=== PATIENT | female | born 1935 | race Caucasian/White ===

== ENCOUNTER 2018-02-28 09:06 | Outpatient (CLI) | payer MEDICARE, OTHER ==
--- NOTE | 2018-02-28 12:34 | MRI ---
MRI OF THE LEFT ANKLE: DATE: 02/28/18. PROVIDED CLINICAL HISTORY: Ankle pain. FINDINGS: There is high-grade partial/near-complete tearing of the flexor hallucis longus tendon at the level o f the tibiotalar joint. The posterior tibialis tendon demonstrates an irregular appearance distally near its navicular insertion suggesting partial tear. The Achilles, anterior extensor, and peroneal tendons appear intact. The medial and lateral ankle ligaments appear intact. There is a prominent subtalar joint space narrowing with periarticular cyst formation and the periart icular edema. There is replacement of the normal fat signal intensity within the sinus tarsi. Joint space narrowing is also seen involving the tibiotalar joint. There is a small tibiotalar joint effu edna. A small low-grade osteochondral lesion involving the medial talar dome. Courses of the regional major neurovascular structures appear unremarkable. Regional marrow and musc ular signal appear otherwise normal. Plantar aponeurosis appears normal. IMPRESSION: 1. High-grade partial thickness/near full-thickness tearing of the flexor hallucis longus tendon at the level of the tibiotalar joint. 2. Low-grade partial thickness distal posterior tibialis tendon tear. 3. Advanced posterior subtalar degenerative arthrosis. 4. Tibiotalar degenerative change with small low-grade osteochondral lesion involving the medial gale ar dome and small tibiotalar joint effusion. POS: George
== END 2018-02-28 09:07 | disposition home or self-care (01) ==
LOC: SCSMRI 09:06
PROVIDERS: ATTEND Podiatrist
DX: M25.572 Pain in left ankle and joints of left foot (principal); G89.29 Other chronic pain; S96.912A Strain of unspecified muscle and tendon at ankle and foot level, left foot, initial encounter; M19.072 Primary osteoarthritis, left ankle and foot; M25.472 Effusion, left ankle; M25.872 Other specified joint disorders, left ankle and foot

== ENCOUNTER 2021-09-11 07:26 | Day surgery (SDC) | payer MEDICARE, OTHER ==
[2021-09-11 06:44] VITALS: BMI 20.9
[~2021-09-11 07:26] MED LIST: FLU VACC QS2021-22(65YR UP)/PF 240 MCG/0.7 ML SYRINGE IM ONE
[2021-09-11 07:53] VITALS: TEMP 98.2
[2021-09-11 10:23] VITALS: BP 189/70
== END 2021-09-11 10:10 | disposition home or self-care (01) ==
LOC: RAD 07:26
PROVIDERS: ATTEND Anesthesiology Pain Medicine
PROC: B02B1ZZ Computerized Tomography (CT Scan) of Spinal Cord using Low Osmolar Contrast (ICD-10-PCS; principal; 2021-09-11)
DX: M47.22 Other spondylosis with radiculopathy, cervical region (principal); M50.11 Cervical disc disorder with radiculopathy, high cervical region; M48.02 Spinal stenosis, cervical region; M40.202 Unspecified kyphosis, cervical region; M43.12 Spondylolisthesis, cervical region; M25.78 Osteophyte, vertebrae; M47.813 Spondylosis without myelopathy or radiculopathy, cervicothoracic region; M48.03 Spinal stenosis, cervicothoracic region; M48.062 Spinal stenosis, lumbar region with neurogenic claudication; M47.816 Spondylosis without myelopathy or radiculopathy, lumbar region; M41.86 Other forms of scoliosis, lumbar region; M51.36 Other intervertebral disc degeneration, lumbar region; M40.204 Unspecified kyphosis, thoracic region; M48.04 Spinal stenosis, thoracic region; M51.25 Other intervertebral disc displacement, thoracolumbar region; M43.16 Spondylolisthesis, lumbar region; M47.817 Spondylosis without myelopathy or radiculopathy, lumbosacral region; M48.07 Spinal stenosis, lumbosacral region; M43.17 Spondylolisthesis, lumbosacral region; J32.3 Chronic sphenoidal sinusitis; I70.0 Atherosclerosis of aorta; Z87.891 Personal history of nicotine dependence; Z23 Encounter for immunization; Z79.1 Long term (current) use of non-steroidal anti-inflammatories (NSAID); Z79.899 Other long term (current) drug therapy; Z88.0 Allergy status to penicillin; Z98.890 Other specified postprocedural states
CPT/HCPCS: 62305; 72100; 72126; 72132; 90662; G0008; 90471

== ENCOUNTER 2024-07-03 11:33 | Observation (INO) | payer MEDICARE, OTHER ==
[2024-07-03 13:27] LABS: #Basophils 0.03 10x3/uL (0.0-0.2); %Basophils 0.3 % (0.0-1.0); %Eosinophils 0.6 % (0.0-10.0); %Lymphocytes 7.9 % (21.0-51.0); %Monocytes 6.6 % (0.0-10.0); %Neutrophils 84.3 % (42.0-75.0); Hematocrit 35.9 % (36.0-47.0); Hemoglobin 11.9 g/dL (12.0-16.0); Mean Corpuscular HGB CONC 33.1 g/dL (32.0-36.0); Mean Corpuscular Hemoglobin 31.2 pg (27.0-31.0); Mean Corpuscular Volume 94.2 fL (78.0-98.0); Mean Platelet Volume 9.6 fL (7.4-10.4); Platelet Count 338 10x3/uL (130-400); RBC Distribution Width 13.6 % (11.5-14.5); Red Blood Cell (RBC) Count 3.81 mill/uL (4.20-5.40)
[2024-07-03 13:45] LABS: INR-International Normal Ratio 0.9; PTT 31.7 sec (22.9-36.1); Prothrombin Time 12.4 sec (12.0-14.7)
[2024-07-03 13:50] LABS: ALT (SGPT) 43 U/L (8-55); AST (SGOT) 53 U/L (5-34); Albumin 3.5 g/dL (3.4-4.8); Alkaline Phosphatase 168 U/L (40-110); Anion Gap 16 mmol/L (10-20); BUN (Urea Nitrogen) 34 mg/dL (9.8-20.1); Bilirubin, Total 0.5 mg/dL (0.2-1.2); Calc. Creatinine Clearance 0 mL/min (70-130); Calcium 10.5 mg/dL (7.8-10.44); Carbon Dioxide 28 mmol/L (23-31); Chloride 97 mmol/L (98-107); Estimated GFR 39; Globulin 3.5 g/dL (2.4-3.5); Glucose 105 mg/dL (83-110); Potassium 3.8 mmol/L (3.5-5.1); Sodium 137 mmol/L (136-145)
[2024-07-03 13:54] LABS: Troponin I 0.011 ng/mL (< 0.028)
[2024-07-03 15:17] LABS: Bacteria/HPF None Seen HPF (None Seen); Bilirubin 2+ (Negative); Blood, Urine Negative (Negative); CAUTI Indications for Culture Alt mental st,lethar; Clarity Clear (Clear); Glucose, Urine (Dipstick) Normal (Negative); Ketone, Urine 10 mg/dL (Negative); Leukocyte 500 Leu/uL (Negative); Nitrite Negative (Negative); Protein, Urine (Dipstick) 10 mg/dL (Neg-Trace); RBC/HPF 0-3 HPF (0-3); Specific Gravity, Urine 1.014 (1.002-1.036); Squamous Epithelial 0-3 HPF (0-3); Urobilinogen Normal mg/dL (Less than 2); WBC/HPF 21-50 HPF (0-3); pH, Urine 5.5 (5.0-9.0)
[2024-07-03 15:21] LABS: Urine Culture Reflex Yes Yes
[2024-07-03] MEDS ORDERED: cefTRIAXone (ROCEPHIN) 1 GM VIAL ONE (16:33)
[2024-07-03] MEDS ORDERED: Sodium Chloride 0.9% 100 ML ONE (16:33)
[2024-07-03] MEDS ORDERED: Famotidine 20 MG TAB PO PRN (17:05)
[2024-07-03] MEDS ORDERED: hydrALAZINE 20 MG/ML VIAL SLOW IVP PRN (17:05)
[2024-07-03] MEDS ORDERED: Senokot S 8.6-50 MG TAB PO PRN (17:05)
[2024-07-03] MEDS ORDERED: Ondansetron PF 4 MG/2 ML Vial IVP PRN (17:15)
[2024-07-03] MEDS ORDERED: Ondansetron ODT 4 MG TAB SL PRN (17:15)
[2024-07-03] MEDS: Atorvastatin Calcium 40 MG TAB PO SCH (20:58)
[2024-07-03 21:09] VITALS: BMI 20.5
[2024-07-03] MEDS: Acetaminophen 325 MG TAB PO PRN (23:36)
[2024-07-04 04:35] LABS: Anion Gap 15 mmol/L (10-20); BUN (Urea Nitrogen) 21 mg/dL (9.8-20.1); Calc. Creatinine Clearance 41 mL/min (70-130); Calcium 10.5 mg/dL (7.8-10.44); Carbon Dioxide 25 mmol/L (23-31); Cardiac Risk 3.2 (Less than 4.5); Chloride 102 mmol/L (98-107); Cholesterol 168 mg/dl (< 200 Desired); Estimated GFR 69; Glucose 84 mg/dL (83-110); HDL Cholesterol 53 mg/dL (>60 Neg Risk); LDL Cholesterol, Calculated 100 mg/dL; Potassium 3.6 mmol/L (3.5-5.1); Sodium 138 mmol/L (136-145); Triglycerides 76 mg/dL (Less than 150)
[2024-07-04 05:21] LABS: #Basophils 0.05 10x3/uL (0.0-0.2); %Basophils 0.6 % (0.0-1.0); %Eosinophils 2.1 % (0.0-10.0); %Monocytes 11.2 % (0.0-10.0); %Neutrophils 62.7 % (42.0-75.0); Hemoglobin 12.3 g/dL (12.0-16.0); Mean Corpuscular HGB CONC 33.2 g/dL (32.0-36.0); Mean Corpuscular Hemoglobin 31.5 pg (27.0-31.0); Mean Corpuscular Volume 94.9 fL (78.0-98.0); Platelet Count 294 10x3/uL (130-400); RBC Distribution Width 13.5 % (11.5-14.5)
[2024-07-04] MEDS: Aspirin 81 mg Enteric Coated Tablet PO SCH (09:36)
[2024-07-04] MEDS: Pantoprazole DR 40 MG TAB PO SCH (09:36)
[2024-07-04] MEDS: FLU (Fluad Triv) TS24-25 (65UP)/MF59C/PF 45 MCG/0.5 ML Syringe IM ONE (09:36)
[2024-07-04] MEDS ORDERED: Famotidine 20 MG TAB PO PRN (09:53)
[2024-07-04 11:57] VITALS: BMI 20.5
[2024-07-04 16:00] VITALS: BP 199/81; TEMP 98.2
[2024-07-04] MEDS ORDERED: cefTRIAXone\\ROCEPHIN 1 GM in Sodium Chloride 0.9% 100 ML IVPB SCH (17:00)
== END 2024-07-04 17:00 | disposition home or self-care (01) ==
LOC: ERS 11:33 → 2NO 16:53
PROVIDERS: ADMIT Internal Medicine; ATTEND Internal Medicine
PROC: B24BZZZ Ultrasonography of Heart with Aorta (ICD-10-PCS; principal; 2024-07-04)
DX: R55 Syncope and collapse (principal); R41.82 Altered mental status, unspecified; R29.818 Other symptoms and signs involving the nervous system; R53.1 Weakness; N17.9 Acute kidney failure, unspecified; N39.0 Urinary tract infection, site not specified; I10 Essential (primary) hypertension; F03.A0 Unspecified dementia, mild, without behavioral disturbance, psychotic disturbance, mood disturbance, and anxiety; K21.9 Gastro-esophageal reflux disease without esophagitis; M48.02 Spinal stenosis, cervical region; Z90.49 Acquired absence of other specified parts of digestive tract; Z90.710 Acquired absence of both cervix and uterus; Z98.49 Cataract extraction status, unspecified eye; Z87.891 Personal history of nicotine dependence; Z88.0 Allergy status to penicillin; Z79.82 Long term (current) use of aspirin; Z79.2 Long term (current) use of antibiotics; Z79.899 Other long term (current) drug therapy
CPT/HCPCS: 70450; 71045; 80048; 80053; 80061; 81001; 84484; 85025 ×2; 85610; 85730; 87086; 93005; 93306; 94760; 95700; 95711; 95957; 96361; 96374; 99285; G0378 ×3; J0696; 36415

== ENCOUNTER 2024-09-02 14:57 | Observation (INO) | payer MEDICARE, OTHER ==
[2024-09-02 15:44] LABS: #Basophils 0.04 10x3/uL (0.0-0.2); %Basophils 0.4 % (0.0-1.0); %Eosinophils 2.7 % (0.0-10.0); %Lymphocytes 17.4 % (21.0-51.0); %Monocytes 9.1 % (0.0-10.0); Hematocrit 35.7 % (36.0-47.0); Hemoglobin 11.6 g/dL (12.0-16.0); Mean Corpuscular HGB CONC 32.5 g/dL (32.0-36.0); Mean Corpuscular Hemoglobin 31.1 pg (27.0-31.0); Mean Corpuscular Volume 95.7 fL (78.0-98.0); Mean Platelet Volume 9.6 fL (7.4-10.4); Platelet Count 334 10x3/uL (130-400); RBC Distribution Width 14.3 % (11.5-14.5); Red Blood Cell (RBC) Count 3.73 mill/uL (4.20-5.40)
[2024-09-02 15:56] LABS: ALT (SGPT) 10 U/L (8-55); AST (SGOT) 18 U/L (5-34); Acetaminophen Less than 10 mcg/mL (Less than 10); Albumin 3.5 g/dL (3.4-4.8); Alcohol Less than 10.0 mg/dL (Less than 10); Alkaline Phosphatase 87 U/L (40-110); Anion Gap 11 mmol/L (10-20); BUN (Urea Nitrogen) 20 mg/dL (9.8-20.1); Bilirubin, Total 0.4 mg/dL (0.2-1.2); Calc. Creatinine Clearance 0 mL/min (70-130); Calcium 9.5 mg/dL (7.8-10.44); Carbon Dioxide 31 mmol/L (23-31); Chloride 98 mmol/L (98-107); Estimated GFR 37; Globulin 2.9 g/dL (2.4-3.5); Glucose 83 mg/dL (83-110); Potassium 4.4 mmol/L (3.5-5.1); Protein, Total 6.4 g/dL (5.8-8.1); Salicylate Less than 8.0 mg/dL (Less than 8.0); Sodium 136 mmol/L (136-145)
[2024-09-02 16:02] LABS: Troponin I 0.021 ng/mL (< 0.028)
[2024-09-02 19:03] LABS: Bacteria/HPF None Seen HPF (None Seen); Bilirubin 2+ (Negative); Blood, Urine Negative (Negative); CAUTI Indications for Culture Alt mental st,lethar; Clarity Clear (Clear); Glucose, Urine (Dipstick) Normal (Negative); Ketone, Urine Negative (Negative); Leukocyte 25 Leu/uL (Negative); Nitrite Negative (Negative); Protein, Urine (Dipstick) Negative (Neg-Trace); RBC/HPF 0-3 HPF (0-3); Specific Gravity, Urine 1.009 (1.002-1.036); Squamous Epithelial 0-3 HPF (0-3); Urobilinogen Normal mg/dL (Less than 2); pH, Urine 5.5 (5.0-9.0)
[2024-09-02 19:08] LABS: Amphetamine Not Detected (NotDetected); Barbiturates Screen Not Detected (NotDetected); Benzodiazepine Screen Not Detected (NotDetected); Cocaine Metabolite Screen Not Detected (NotDetected); Methadone Not Detected (NotDetected); Methamphetamine Not Detected (NotDetected); Opiate Screen Detected (NotDetected); Oxycodone Screen Not Detected (NotDetected); Phencyclidine (PCP) Not Detected (NotDetected); THC/Cannabinoid Screen Not Detected (NotDetected); Tricyclic Screen Not Detected (NotDetected)
[2024-09-02 19:51] LABS: Urine Culture Reflex No No
[2024-09-02 21:43] LABS: Troponin I 0.011 ng/mL (< 0.028)
[2024-09-02] MEDS ORDERED: Aspirin Chewable 81 MG TAB ONE (22:04)
[2024-09-02] MEDS ORDERED: Cyanocobalamin 1000 MCG/ML VIAL IM SCH (23:45)
[2024-09-03 01:02] VITALS: BMI 20.2
[2024-09-03] MEDS ORDERED: Calcium Carbonate 500 MG ChewTAB PO PRN (02:10)
[2024-09-03] MEDS ORDERED: hydrALAZINE 25 MG TAB PO PRN (02:14)
[2024-09-03] MEDS: Acetaminophen 325 MG TAB PO PRN (02:48)
[2024-09-03] MEDS: Sodium Chloride 0.9% 1,000 ML IV SCH (02:53)
[2024-09-03 07:45] LABS: Anion Gap 10 mmol/L (10-20); BUN (Urea Nitrogen) 17 mg/dL (9.8-20.1); Calc. Creatinine Clearance 48 mL/min (70-130); Carbon Dioxide 29 mmol/L (23-31); Cardiac Risk 2.7 (Less than 4.5); Chloride 105 mmol/L (98-107); Cholesterol 163 mg/dl (< 200 Desired); Estimated GFR 84; Glucose 88 mg/dL (83-110); HDL Cholesterol 60 mg/dL (>60 Neg Risk); LDL Cholesterol, Calculated 93 mg/dL; Potassium 4.2 mmol/L (3.5-5.1); Sodium 140 mmol/L (136-145); Triglycerides 52 mg/dL (Less than 150)
[2024-09-03] MEDS: cefTRIAXone\\ROCEPHIN 1 GM in Sodium Chloride 0.9% 100 ML IVPB SCH (08:56)
[2024-09-03] MEDS: Aspirin 81 mg Enteric Coated Tablet PO SCH (08:56)
[2024-09-03] MEDS: Senokot S 8.6-50 MG TAB PO SCH (08:56)
[2024-09-03] MEDS: cefTRIAXone (ROCEPHIN) 1 GM VIAL ONE ×2 (09:08)
[2024-09-03] MEDS: Amlodipine 10 MG TAB PO SCH (09:52)
[2024-09-03] MEDS: hydrALAZINE 20 MG/ML VIAL SLOW IVP PRN (11:00)
[2024-09-03 11:03] VITALS: TEMP 98.3
[2024-09-03 12:16] VITALS: BP 162/71
[2024-09-03] MEDS ORDERED: Cyanocobalamin (Vitamin B-12) 1,000 MCG TAB PO SCH (21:00)
[2024-09-04] MEDS ORDERED: Amlodipine 10 MG TAB PO SCH (09:00)
== END 2024-09-03 13:45 | disposition home or self-care (01) ==
LOC: ERS 14:57 → 2SE 21:07
PROVIDERS: ADMIT Internal Medicine; ATTEND Internal Medicine
DX: G93.41 Metabolic encephalopathy (principal); I12.9 Hypertensive chronic kidney disease with stage 1 through stage 4 chronic kidney disease, or unspecified chronic kidney disease; N18.30 Chronic kidney disease, stage 3 unspecified; N17.9 Acute kidney failure, unspecified; E53.8 Deficiency of other specified B group vitamins; G89.4 Chronic pain syndrome; D64.9 Anemia, unspecified; Z98.49 Cataract extraction status, unspecified eye; Z87.891 Personal history of nicotine dependence; Z90.49 Acquired absence of other specified parts of digestive tract; Z90.710 Acquired absence of both cervix and uterus; Z88.0 Allergy status to penicillin; Z79.82 Long term (current) use of aspirin; Z79.2 Long term (current) use of antibiotics; Z79.899 Other long term (current) drug therapy
CPT/HCPCS: 70450; 80048; 80061; 80306; 80307; 81001; 82140; 82607; 84439; 84484 ×3; 87086; 93005; 96374; 96375; 97116; G0378 ×3; J0360; J0696; J7030; 36415; 80053; 84443; 85025